=== PATIENT | male | born 1975 | race African-American/Black ===

== ENCOUNTER 2016-12-10 09:33 | Inpatient (IN) | payer MEDICARE, OTHER ==
--- NOTE | 2016-12-10 09:54 | PDOC ---
History of Present Illness - General Chief Complaint: Respiratory Stated Complaint: FEVER Time Seen by Provider: 12/10/16 09:54 Past History - Past Medical History Asthma: Yes - Psycho/Social/Smoking Cessation Hx Suicidal Ideation: No Smoking History: Current every day smoker Number of Cigarettes Smoked Daily: 4 Information on smoking cessation initiated: No Hx Alcohol Use: No Drug/Substance Use Hx: No *Physical Exam - Vital Signs Last Vital Signs Temp Pulse Resp BP Pulse Ox 98.4 F 107 H 18 137/70 100 12/10/16 09:47 12/10/16 09:47 12/10/16 09:47 12/10/16 09:47 12/10/16 09:47 *DC/Admit/Observation/Transfer - Attestations Physician Attestion: 12/10/16 09:54 I, Dr. Blake Peraza, attest that this document has been prepared under my direction and personally reviewed by me in its entirety. I further attest, that it accurately reflects all work, treatment, procedures and medical decision -making performed by me.
[2016-12-10 11:18] LABS: BASOPHIL 0.6 % (0-2.0); EOSINOPHIL 9.7 % (0-4.5); MCHC 32.6 g/dl (32.0-35.9); MEAN CELL VOLUME 79.8 fl (80-96); MEAN PLT VOLUME 7.2 fl (7.5-11.1); NEUTROPHILS 71.9 % (42.8-82.8); PLATELET COUNT 431 K/MM3 (134-434); RDW 13.4 % (11.9-15.9); WHITE BLOOD COUNT 16.9 K/mm3 (4.0-10.0)
--- NOTE | 2016-12-10 11:22 | PDOC ---
History of Present Illness - General Chief Complaint: Respiratory Stated Complaint: FEVER Time Seen by Provider: 12/10/16 09:54 History Source: Patient Exam Limitations: No Limitations - History of Present Illness Initial Comments: 12/10/16 11:16 41-year-old male presents to the ED with complaints of cough and congestion for the past 3 weeks now associated with midsternal chest tightness along with achiness without shortness of breath. Patient denies fever, chills, lower extremity edema, recent travel, recent illness. Patient does state smokes cigarettes daily and has had intermittent palpitations since onset worsened with exertion. Patient denies medical history except for asthma and states has not seen a doctor in a few years. Timing/Duration: reports: other (3 weeks) Severity: reports: mild, moderate Possible Cause: Yes: no prior episodes Modifying Factors: improves with: coughing Associated Symptoms: reports: chest pain/soreness, cough. denies: wheezing Past History - Past Medical History Home Medications: Ambulatory Orders Albuterol Sulfate Inhaler - [Ventolin Hfa Inhaler -] 1 - 2 inh PO Q4HWA PRN Asthma: Yes - Psycho/Social/Smoking Cessation Hx Suicidal Ideation: No Smoking History: Current every day smoker Number of Cigarettes Smoked Daily: 4 Information on smoking cessation initiated: No Hx Alcohol Use: No Drug/Substance Use Hx: No Patient Lives Alone: No Respiratory Specific PMHX - Complaint Specific PMHX Bronchitis: No Pneumonia: No Pulmonary Embolus: No Review of Systems - Review of Systems Able to Perform ROS?: Yes Constitutional: No: Symptoms Reported, Chills, Fever, Weakness HEENTM: No: Symptoms Reported Respiratory: Yes: Cough. No: Shortness of Breath, Productive cough Cardiac (ROS): Yes: Chest Pain ABD/GI: No: Symptoms Reported : No: Symptoms Reported Musculoskeletal: No: Symptoms Reported Integumentary: No: Symptoms Reported Neurological: No: Symptoms reported Endocrine: No: Symptoms Reported Hematologic/Lymphatic: No: Symptoms Reported *Physical Exam - Vital Signs Last Vital Signs Temp Pulse Resp BP Pulse Ox 98.4 F 107 H 18 137/70 100 12/10/16 09:47 12/10/16 09:47 12/10/16 09:47 12/10/16 09:47 12/10/16 09:47 - Physical Exam General Appearance: Yes: Nourished, Appropriately Dressed. No: Apparent Distress HEENT: positive: EOMI, JOE, Pharynx Normal. negative: Pale Conjunctivae Neck: positive: Normal Thyroid, Supple Respiratory/Chest: positive: Lungs Clear, Normal Breath Sounds. negative: Respiratory Distress, Accessory Muscle Use Cardiovascular: positive: Regular Rhythm, Tachycardia. negative: Murmur Vascular Pulses: Dorsalis-Pedis (R): 2+, Doralis-Pedis (L): 2+ Gastrointestinal/Abdominal: positive: Soft. negative: Tenderness Extremity: positive: Normal Capillary Refill. negative: Pedal Edema Integumentary: positive: Normal Color, Warm, Moist Neurologic: positive: Normal Mood/Affect, Motor Strength 5/5 (ambulatory) Heart Score/ECG Review - History History: Slightly suspicious - Electrocardiogram EKG: Normal - Age Age: </= 45 - Risk Factors Risk Factors Heart Score: Yes Smoking History Based on the list above the patient has:: 1-2 risk factors - Troponin Troponin: </= normal limit - Score Heart Score - Total: 1 - ECG Intrepretation Rhythm: Regular Rhythm Comment:: 12/10/16 11:27 sinus tachycardia at 103. left atrial enlargement ED Treatment Course - LABORATORY CBC & Chemistry Diagram: 12/10/16 10:55 12/10/16 10:55 - RADIOLOGY Radiology Studies Ordered: Category Date Time Status CHEST X-RAY PORTABLE* [RAD] Stat Radiology 12/10/16 10:56 Taken Medical Decision Making - Medical Decision Making 12/10/16 11:07 Patient here with complaints of cough and congestion for the past week now associated with midsternal chest pain and palpitations worsened with exertion. Patient exam had no acute findings except for elevated heart rate. Patient was ordered for d-dimer, TSH, cardiac profile, EKG, chest x-ray, CBC, comp, and cardiac monitoring. 12/10/16 13:27 Chest x-ray shows a noncalcified mass projecting over the region of aortic arch likely mediastinal in origin. CT of the chest with IV contrast enhancement as recommended. CAT scan was ordered. Patient made aware and awaiting creatinine level. Patient's heart rate presently at 105. Laboratory Tests 12/10/16 12/10/16 12/10/16 10:55 10:55 10:55 WBC 16.9 H Hgb 11.5 L Hct 35.3 L RDW 13.4 Plt Count 431 MPV 7.2 L Neutrophils % 71.9 Eosinophils % 9.7 H D-Dimer 637 H Sodium 137 Potassium 4.7 Chloride 101 Carbon Dioxide 28 Anion Gap 8 BUN 11 Creatinine 1.0 Random Glucose 101 Calcium 9.0 Total Bilirubin 0.2 AST 28 ALT 50 Troponin I < 0.02 Albumin 2.7 L TSH 1.24 HIV 1&2 Antibody Screen HIV P24 Antigen 12/10/16 10:55 WBC Hgb Hct RDW Plt Count MPV Neutrophils % Eosinophils % D-Dimer Sodium Potassium Chloride Carbon Dioxide Anion Gap BUN Creatinine Random Glucose Calcium Total Bilirubin AST ALT Troponin I Albumin TSH HIV 1&2 Antibody Screen Pending HIV P24 Antigen Pending 12/10/16 15:08 CT of the chest shows a large left superior menisci no necrotic mass lesion measuring 6.5 x 7 cm with mild I atelectatic changes of the adjacent left upper lobe. Case discussed with thoracic surgeon who states patient requires a needle biopsy which can be performed by IR. Patient will be admitted to the hospitalist service. Microblog sent. *DC/Admit/Observation/Transfer Diagnosis at time of Disposition: Mass in chest Chest pain Qualifiers: Chest pain type: unspecified Qualified Code(s): R07.9 - Chest pain, unspecified - Discharge Dispostion Admit: Yes
[2016-12-10 12:19] LABS: GLUCOSE,RANDOM 101 mg/dL (74-106)
[2016-12-10 12:20] LABS: ALBUMIN 2.7 g/dl (3.4-5.0); ALK PHOS 86 U/L (45-117); ANION GAP 8 (8-16); BILIRUBIN,TOTAL 0.2 mg/dL (0.2-1.0); CO2 28 mmol/L (21-32); COCKROFT - GAULT 94.49; SGOT/AST 28 U/L (15-37); SGPT/ALT 50 U/L (12-78); TOT PROT 7.7 g/dl (6.4-8.2)
[2016-12-10 12:21] LABS: THYROID STIMULATING HORMONE 1.24 uIU/ml (0.358-3.74); TROPONIN I < 0.02 ng/ml (0.00-0.05)
[2016-12-10 13:35] LABS: HIV 1 & 2 AB NEGATIVE; HIV 1 AGp24 NEGATIVE
--- NOTE | 2016-12-10 15:50 | EKG ---
Test Reason : Blood Pressure : / mmHG Vent. Rate : 103 BPM Atrial Rate : 103 BPM P-R Int : 140 ms QRS Dur : 076 ms QT Int : 326 ms P-R-T Axes : 080 087 054 degrees QTc Int : 427 ms SINUS TACHYCARDIA POSSIBLE LEFT ATRIAL ENLARGEMENT BORDERLINE ECG NO PREVIOUS ECGS AVAILABLE Confirmed by BINTA KATZ MD ([id number]) on 12/10/2016 3:50:01 PM Referred By: Confirmed By:BINTA KATZ MD
[2016-12-10] MEDS ORDERED: ALBUTEROL SO4 0.083% IH SOL 2.5 MG/3 ML VIAL.NEB. NEB PRN (16:48)
--- NOTE | 2016-12-10 16:48 | HP ---
CHIEF COMPLAINT: Chest pain PCP: Not on staff HISTORY OF PRESENT ILLNESS: Patient is a 41 year old male with a PMHx of Asthma who presented with a nonradiating, sharp, midsternal chest pain that began two weeks ago. 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 This morning patient reports the pain worsened in nature, which prompted this hospital visit. The chest pain is associated with a productive cough with clear sputum, runny nose, fever, chills, night sweats and a 10 pound unintentional weight loss within six months. Patient did not take any medication for the pain and never had any similar episodes in the past. Otherwise, patient denies shortness of breath, nausea, vomiting, abdominal pain, dysuria, hematuria, headaches. ER course was notable for: (1) EKG (2) CT (3) CXR Recent Travel: None PAST MEDICAL HISTORY: Asthma PAST SURGICAL HISTORY: None Social History: Smokin cigarettes a day Alcohol: Denies Drugs: Denies Family History: Father: "shoulder cancer". Mother: DM and HTN Allergies: No Known Drug Allergies Allergy (Verified 12/10/16 16:43) Vital Signs - 24 hr 12/10/16 12/10/16 09:47 14:23 Temperature 98.4 F 98.6 F Pulse Rate 107 H Pulse Rate [ 96 H Left Radial] Respiratory 18 18 Rate Blood Pressure 137/70 Blood Pressure 105/65 [Right Arm] O2 Sat by Pulse 100 98 Oximetry (%) HOME MEDICATIONS: Home Medications Medication Instructions Recorded Albuterol Sulfate Inhaler - 1 - 2 inh PO Q4HWA PRN 12/10/16 [Ventolin Hfa Inhaler -] REVIEW OF SYSTEMS CONSTITUTIONAL: fever, chills, generalized weakness, malaise Absent: diaphoresis, loss of appetite, weight change HEENT: rhinorrhea, nasal congestion Absent: throat pain, throat swelling, difficulty swallowing, mouth swelling, ear pain, eye pain, visual changes CARDIOVASCULAR: palpitations Absent: chest pain, syncope, irregular heart rate, lightheadedness, peripheral edema RESPIRATORY: cough Absent: shortness of breath, dyspnea with exertion, orthopnea, wheezing, stridor , hemoptysis GASTROINTESTINAL: Absent: abdominal pain, abdominal distension, nausea, vomiting, diarrhea, constipation, melena, hematochezia GENITOURINARY: Absent: dysuria, frequency, urgency, hesitancy, hematuria, flank pain, genital pain MUSCULOSKELETAL: Absent: myalgia, arthralgia, joint swelling, back pain, neck pain SKIN: Absent: rash, itching, pallor HEMATOLOGIC/IMMUNOLOGIC: Absent: easy bleeding, easy bruising, lymphadenopathy, frequent infections ENDOCRINE: unexplained weight loss Absent: unexplained weight gain, heat intolerance, cold intolerance NEUROLOGIC: Absent: headache, focal weakness or paresthesias, dizziness, unsteady gait, seizure, mental status changes, bladder or bowel incontinence PSYCHIATRIC: Absent: anxiety, depression, suicidal or homicidal ideation, hallucinations. PHYSICAL EXAMINATION GENERAL: Awake, alert, and fully oriented, in no acute distress. HEAD: Normal with no signs of trauma. EYES: Pupils equal, round and reactive to light, extraocular movements intact, sclera anicteric, conjunctiva clear. EARS, NOSE, THROAT: Oropharynx clear without exudates. Moist mucous membranes. NECK: Normal range of motion, supple without lymphadenopathy, JVD, or masses. LUNGS: Breath sounds equal, clear to auscultation bilaterally. No wheezes, and no crackles. No accessory muscle use. HEART: Tachycardic with normal rhythm, normal S1 and S2 without murmur, rub or gallop. ABDOMEN: Soft, nontender, not distended, normoactive bowel sounds, no guarding, no rebound, no masses. No hepatomegaly or splenomegaly. MUSCULOSKELETAL: Normal range of motion at all joints. UPPER EXTREMITIES: No peripheral edema. LOWER EXTREMITIES: No peripheral edema. NEUROLOGICAL: Normal speech. Normal gait. PSYCHIATRIC: Cooperative. Good eye contact. Appropriate mood and affect. SKIN: Warm, dry, normal turgor, no rashes or lesions noted, normal capillary refill. Laboratory Results - last 24 hr 12/10/16 12/10/16 12/10/16 10:55 10:55 10:55 WBC 16.9 H RBC 4.42 Hgb 11.5 L Hct 35.3 L MCV 79.8 L MCHC 32.6 RDW 13.4 Plt Count 431 MPV 7.2 L Neutrophils % 71.9 Lymphocytes % 9.4 Monocytes % 8.4 Eosinophils % 9.7 H Basophils % 0.6 D-Dimer 637 H Sodium 137 Potassium 4.7 Chloride 101 Carbon Dioxide 28 Anion Gap 8 BUN 11 Creatinine 1.0 Creat Clearance w eGFR > 60 Random Glucose 101 Calcium 9.0 Total Bilirubin 0.2 AST 28 ALT 50 Alkaline Phosphatase 86 Creatine Kinase 99 Troponin I < 0.02 Total Protein 7.7 Albumin 2.7 L TSH 1.24 HIV 1&2 Antibody Screen HIV P24 Antigen 12/10/16 10:55 WBC RBC Hgb Hct MCV MCHC RDW Plt Count MPV Neutrophils % Lymphocytes % Monocytes % Eosinophils % Basophils % D-Dimer Sodium Potassium Chloride Carbon Dioxide Anion Gap BUN Creatinine Creat Clearance w eGFR Random Glucose Calcium Total Bilirubin AST ALT Alkaline Phosphatase Creatine Kinase Troponin I Total Protein Albumin TSH HIV 1&2 Antibody Screen Negative HIV P24 Antigen Negative Images: Chest X-ray (12/10/16): Non calcified mass projecting over region of aortic arch. Chest CT with contrast (12/10/16): Large left superior mediastinal mass lesion measuring 7x6.5cm with hypodense center and thick irregular wall suggestive of a necrotic mass. EKG (12/10/16): Sinus Tachycardia @103 BPM, QTc 427. (-) ST-T changes ASSESSMENT/PLAN: Patient is a 41 year old male with a PMHx of asthma who presented for chest pain , fever, chills, weight loss, and URI symptoms and was found to have a mediastinal mass on CT. Patient admitted for further monitoring and management. Chest Pain likely secondary to mediastinal mass or aortic arch -Possible lymphoma/thymoma? -CT chest revealed necrotic mediastinal mass -Thoracic surgeon contacted and recommended needle biopsy -IR consult placed for mediastinal needle biopsy -If procedure is tomorrow, will place patient NPO -ECHO ordered Leukocytosis -Possibly viral vs. reactive -URI symptoms with low grade fevers -CT and Chest x-ray negative for pneumonia -Will treat symptomatically with Tylenol 650mg PO PRN -Continue to monitor CBC Asthma -Albuterol PRN -O2 as needed F/E/N -On no fluids -Electrolytes wnl -Regular diet. NPO after midnight Prophylaxis -SCD's and EAM for DVT Disposition -Awaiting for needle biopsy. Will need to stay overnight. Visit type - Emergency Visit Emergency Visit: Yes ED Registration Date: 12/10/16 Care time: The patient presented to the Emergency Department on the above date and was hospitalized for further evaluation of their emergent condition. - New Patient This patient is new to me today: Yes Date on this admission: 12/12/16 - Critical Care Critical Care patient: No
[2016-12-10 18:36] VITALS: BMI 21.2
--- NOTE | 2016-12-10 18:49 | PN ---
Teaching Attending Note Name of Resident: Skye Estes ATTENDING PHYSICIAN STATEMENT I saw and evaluated the patient. I reviewed the resident's note and discussed the case with the resident. I agree with the resident's findings and plan as documented. SUBJECTIVE: This is a 41-year-old man with a history of asthma who comes to the ER complaining of productive cough, intermittent chest pain for several weeks. He also notes night sweats and a 10 lb weight loss over about 6 months. OBJECTIVE: Vital Signs Period Temp Pulse Resp BP Sys/Torres Pulse Ox Last 24 Hr 98.4 F-101.8 F 96-107 18-18 100-137/65-70 97-100 HEART: S1 S2, tachycardic LUNGS: Clear ABDOMEN: Soft, non-tender, non-distended, normal BS EXTREMITIES: No edema ASSESSMENT AND PLAN: This is a 41-year-old man with a history of asthma who presented to the ER with productive cough, intermittent chest pain, night sweats, weight loss. 1. SIRS with tachycardia, leukocytosis - No source of infection - Possibly secondary to mediastinal mass 2. Necrotic anterior mediastinal mass with cough, chest pain, night sweats, weight loss - IR evaluation for biopsy - CT surgery evaluation 3. Asthma - Stable - Continue albuterol as needed
[2016-12-10] MEDS: ACETAMINOPHEN 325 MG TABLET (FP) PO PRN (18:55)
[2016-12-11 07:59] LABS: MCH 25.9 pg (25.7-33.7); MCHC 32.4 g/dl (32.0-35.9); MEAN CELL VOLUME 79.9 fl (80-96); MEAN PLT VOLUME 7.4 fl (7.5-11.1); PLATELET COUNT 421 K/MM3 (134-434); RDW 13.4 % (11.9-15.9); WHITE BLOOD COUNT 15.6 K/mm3 (4.0-10.0)
[2016-12-11 08:24] LABS: CALCIUM 9.3 mg/dL (8.5-10.1); COCKROFT - GAULT 93.23
--- NOTE | 2016-12-11 10:23 | PN ---
Physical Exam: SUBJECTIVE: Patient seen and examined by me at bedside. No overnight events noted. Patient offers no complaints OBJECTIVE: Vital Signs Period Temp Pulse Resp BP Sys/Torres Pulse Ox Last 24 Hr 97.7 F-101.8 F 76-101 18-18 97-103/48-66 97-97 GENERAL: Awake, alert, and fully oriented, in no acute distress. NECK: No lymphadenopathy LUNGS: Breath sounds equal, clear to auscultation bilaterally. No wheezes, and no crackles. No accessory muscle use. HEART: RRR, normal S1 and S2 without murmur, rub or gallop. ABDOMEN: Soft, nontender, not distended, normoactive bowel sounds, no guarding, no rebound, no masses. EXTREMITIES: No peripheral edema. Laboratory Results - last 24 hr 12/11/16 12/11/16 12/11/16 06:00 06:00 06:00 WBC 15.6 H RBC 4.31 Hgb 11.1 L Hct 34.4 L MCV 79.9 L MCHC 32.4 RDW 13.4 Plt Count 421 MPV 7.4 L Sodium 137 Potassium 4.9 Chloride 100 Carbon Dioxide 29 Anion Gap 8 BUN 15 D Creatinine 1.0 Random Glucose 85 Calcium 9.3 Blood Type AB POSITIVE Antibody Screen Negative 12/11/16 07:57 WBC RBC Hgb Hct MCV MCHC RDW Plt Count MPV Sodium Potassium Chloride Carbon Dioxide Anion Gap BUN Creatinine Random Glucose Calcium Blood Type AB POSITIVE Antibody Screen Active Medications Generic Name Dose Route Start Last Admin Trade Name Freq PRN Reason Stop Dose Admin Acetaminophen 650 mg 12/10/16 18:36 12/10/16 18:55 Tylenol - PO 650 mg Q6H PRN Administration FEVER OR PAIN Albuterol Sulfate 1 amp 12/10/16 16:48 Ventolin 0.083% Nebulizer Soln - NEB Q6H PRN SHORT OF BREATH/WHEEZING ASSESSMENT/PLAN:
[2016-12-11 10:26] LABS: INR 1.59 (0.82-1.09); PROTHROMBIN TIME (PATIENT) 17.6 SEC (9.98-11.88)
--- NOTE | 2016-12-11 10:41 | CON.PULM ---
Consult Consult Specialty:: PULMONARY Referred by:: MILTON Reason for Consultation:: ANTERIOR MED MASS - History of Present Illness Chief Complaint: COUGH/FEVER/WEIGHT LOSS History of Present Illness: 41 B MALE ACTIVE SMOKER(5 CIGARETTES /DAY) NO ETOH/NO IVDA WAS HIV TESTED 2-3 YEARS AGO TOLD NEGATIVE. PRESENTS WITH COUGH/WHITE SPUTUM/CHEST PAIN WITH COUGH FOR PAST TWO WEEKS. PATIENT HAS NOTED 10 LBS WEIGHT LOSS OVER PAST 3-6 MONTHS. HE HAS A HISTORY OF ASTHMA WHICH IS CONTROLLED BY INHALERS. HAS NOT NOTED TESTICULAR MASS/HEMOPTYSIS /OR HISTORY OF THYROID DISEASE. 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 No: Cancer, COPD, O2 Dependent Gastrointestinal: No: Ascites Hepatobiliary: No: Cirrhosis Renal/: No: Renal Failure Heme/Onc: No: Anemia Infectious Disease: No: AIDS, HIV Psych: No: Addictions Musculoskeletal: No: Bursitis Rheumatology: No: Fibromyalgia Endocrine: No: Diabetes Mellitus - Past Surgical History Past Surgical History: Yes: None - Alcohol/Substance Use Hx Alcohol Use: No History of Substance Use: reports: None - Smoking History Smoking history: Current every day smoker Have you smoked in the past 12 months: Yes Aproximately how many cigarettes per day: 4 - Social History Usual Living Arrangement: Alone Place of : [facility] History of Recent Travel: No Home Medications - Allergies Allergies/Adverse Reactions: Allergies Allergy/AdvReac Type Severity Reaction Status Date / Time No Known Drug Allergies Allergy Verified 12/10/16 16:43 - Home Medications Home Medications: Ambulatory Orders Albuterol Sulfate Inhaler - [Ventolin Hfa Inhaler -] 1 - 2 inh PO Q4HWA PRN Family Disease History - Family Disease History Family History: Unremarkable Review of Systems - Review of Systems Constitutional: reports: Fever, Night Sweats Eyes: reports: No Symptoms HENT: reports: No Symptoms Neck: reports: No Symptoms Cardiovascular: reports: Chest Pain (WITH COUGH) Respiratory: reports: Cough Gastrointestinal: reports: No Symptoms Genitourinary: reports: No Symptoms Breasts: reports: No Symptoms Reported Musculoskeletal: reports: No Symptoms Integumentary: reports: No Symptoms Neurological: reports: No Symptoms Endocrine: reports: No Symptoms Hematology/Lymphatic: reports: No Symptoms Psychiatric: reports: No Symptoms Physical Exam Vital Sings: Vital Signs Temperature 98.5 F 12/11/16 07:04 Pulse Rate 100 H 12/11/16 07:04 Respiratory Rate 18 12/11/16 07:04 Blood Pressure 103/60 12/11/16 07:04 O2 Sat by Pulse Oximetry (%) 97 12/10/16 22:00 Constitutional: Yes: Calm Eyes: Yes: EOM Intact HENT: Yes: Normocephalic Neck: Yes: Trachea Midline. No: Lymphadenopathy, Thyromegaly Cardiovascular: Yes: Regular Rate and Rhythm Respiratory: Yes: CTA Bilaterally Gastrointestinal: Yes: Normal Bowel Sounds, Soft Renal/: Yes: WNL, Other (NO TESTICULAR MASSES PALPATED) Breast(s): Yes: WNL Musculoskeletal: Yes: WNL Extremities: Yes: WNL Edema: No Integumentary: Yes: Tattoos Neurological: Yes: WNL ...Motor Strength: WNL Psychiatric: Yes: WNL Labs: CBC, BMP 12/11/16 06:00 12/11/16 06:00 ALL REVIEWED Imaging - Results Chest X-ray: Image Reviewed Cat Scan: Image Reviewed Problem List - Problems (1) Chest pain Code(s): R07.9 - CHEST PAIN, UNSPECIFIED Qualifiers: Chest pain type: unspecified Qualified Code(s): R07.9 - Chest pain, unspecified (2) Mass of mediastinum Code(s): J98.59 - OTHER DISEASES OF MEDIASTINUM, NOT ELSEWHERE CLASSIFIED (3) Fever Code(s): R50.9 - FEVER, UNSPECIFIED Assessment/Plan 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
--- NOTE | 2016-12-11 11:06 | CONSULT ---
Consult - text type - Consultation Consultation Note: Thoracic Surgery Consultation: 41M active smoker presented with fever and night sweats x 2 weeks, cough, 30lb weight loss and anterior mediastinal mass. Seen by Dr. Saucedo who consulted me. I agree with current plan for core biopsy. Would also send LDH, TFTs, B-hCG , and AFP if not already done. PE shows no palpable lymphadenopathy. Diff dx: lymphoma, thymoma, GCT, lung cancer (small cell over NSCLC). If Core bx non- diagnostic will do [place] (anterior mediastinotomy). Have spent >40 minutes with over 1/2 of the time spent in counseling and coordination of care including discussing with his RN, Dr. Saucedo, Dr. Wiggins, and the patient.
--- NOTE | 2016-12-11 15:24 | PN ---
Physical Exam: SUBJECTIVE: Patient seen and examined by me at bedside. No overnight events noted. Patient did have a temperature >101 yesterday but has not had a temperature since then. He offers no complaints and reports chest pain has subsided. OBJECTIVE: Vital Signs Period Temp Pulse Resp BP Sys/Torres Pulse Ox Last 24 Hr 97.7 F-101.8 F 76-101 18-18 97-109/48-66 97-97 GENERAL: Awake, alert, and fully oriented, in no acute distress. NECK: No lymphadenopathy LUNGS: Breath sounds equal, clear to auscultation bilaterally. No wheezes, and no crackles. No accessory muscle use. HEART: RRR, normal S1 and S2 without murmur, rub or gallop. ABDOMEN: Soft, nontender, not distended, normoactive bowel sounds, no guarding, no rebound, no masses. : No testicular mass EXTREMITIES: No peripheral edema. Laboratory Results - last 24 hr 12/11/16 12/11/16 12/11/16 06:00 06:00 06:00 WBC 15.6 H RBC 4.31 Hgb 11.1 L Hct 34.4 L MCV 79.9 L MCHC 32.4 RDW 13.4 Plt Count 421 MPV 7.4 L INR PTT (Actin FS) Sodium 137 Potassium 4.9 Chloride 100 Carbon Dioxide 29 Anion Gap 8 BUN 15 D Creatinine 1.0 Random Glucose 85 Calcium 9.3 LD Total 173 Blood Type AB POSITIVE Antibody Screen Negative 12/11/16 12/11/16 12/11/16 06:00 07:57 10:00 WBC RBC Hgb Hct MCV MCHC RDW Plt Count MPV INR 1.59 H PTT (Actin FS) 31.0 Sodium Potassium Chloride Carbon Dioxide Anion Gap BUN Creatinine Random Glucose Calcium LD Total Cancelled Blood Type AB POSITIVE Antibody Screen Active Medications Generic Name Dose Route Start Last Admin Trade Name Freq PRN Reason Stop Dose Admin Acetaminophen 650 mg 12/10/16 18:36 12/10/16 18:55 Tylenol - PO 650 mg Q6H PRN Administration FEVER OR PAIN Albuterol Sulfate 1 amp 12/10/16 16:48 Ventolin 0.083% Nebulizer Soln - NEB Q6H PRN SHORT OF BREATH/WHEEZING Images: Chest X-ray (12/10/16): Non calcified mass projecting over region of aortic arch. Chest CT with contrast (12/10/16): Large left superior mediastinal mass lesion measuring 7x6.5cm with hypodense center and thick irregular wall suggestive of a necrotic mass. EKG (12/10/16): Sinus Tachycardia @103 BPM, QTc 427. (-) ST-T changes ASSESSMENT/PLAN: Patient is a 41 year old male with a PMHx of asthma who presented for chest pain , fever, chills, weight loss, and URI symptoms and was found to have a mediastinal mass on CT. Patient admitted for further monitoring and management. Chest Pain likely secondary to mediastinal mass or aortic arch -Possible lymphoma/thymoma/Teratoma/substernal thyroid. AFP, B-HCG, and LDH ordered -Needle Biopsy scheduled for today -ECHO revealed no global hypokinesis Leukocytosis -Possibly viral vs. reactive -URI symptoms with low grade fevers -CT and Chest x-ray negative for pneumonia -Will treat symptomatically with Tylenol 650mg PO PRN -Continue to monitor CBC Asthma -Albuterol PRN -O2 as needed F/E/N -On no fluids -Electrolytes wnl -NPO until needle biopsy Prophylaxis -SCD's and EAM for DVT Disposition -Needle biopsy scheduled today. Visit type - Emergency Visit Emergency Visit: Yes ED Registration Date: 12/10/16 Care time: The patient presented to the Emergency Department on the above date and was hospitalized for further evaluation of their emergent condition. - New Patient This patient is new to me today: No - Critical Care Critical Care patient: No
[2016-12-11] MEDS: ACETAMINOPHEN 325 MG TABLET (FP) PO PRN (16:33)
--- NOTE | 2016-12-11 17:30 | PN ---
Teaching Attending Note Name of Resident: Skye Estes ATTENDING PHYSICIAN STATEMENT I saw and evaluated the patient. I reviewed the resident's note and discussed the case with the resident. I agree with the resident's findings and plan as documented. SUBJECTIVE: Patient continues to have fevers, night sweats. OBJECTIVE: Vital Signs Period Temp Pulse Resp BP Sys/Torres Pulse Ox Last 24 Hr 97.7 F-102.1 F 76-116 15-20 97-119/48-68 97-100 HEART: S1 S2, tachycardic LUNGS: Clear ABDOMEN: Soft, non-tender, non-distended, normal BS EXTREMITIES: No edema ASSESSMENT AND PLAN: This is a 41-year-old man with a history of asthma who presented to the ER with productive cough, intermittent chest pain, night sweats, weight loss. 1. SIRS with tachycardia, leukocytosis - No source of infection - Blood cultures negative so far - Possibly secondary to mediastinal mass 2. Necrotic anterior mediastinal mass with cough, chest pain, night sweats, weight loss - Biopsy by IR today - CT surgery, pulmonary consults appreciated 3. Asthma - Stable - Continue albuterol as needed
[2016-12-12 08:20] LABS: MCH 25.9 pg (25.7-33.7); MCHC 32.4 g/dl (32.0-35.9); MEAN CELL VOLUME 79.9 fl (80-96); PLATELET COUNT 413 K/MM3 (134-434); RDW 13.4 % (11.9-15.9); WHITE BLOOD COUNT 17.4 K/mm3 (4.0-10.0)
--- NOTE | 2016-12-12 09:14 | PN ---
Physical Exam: SUBJECTIVE: Patient seen and examined by me at bedside. No overnight events noted. S/P core biopsy yesterday. Patient reports some soreness in the area of needle insertion but states he does not need pain medication. He denies any shortness of breath, chest pain, palpitations, fever, chills, nausea, vomiting, headaches. OBJECTIVE: Vital Signs Period Temp Pulse Resp BP Sys/Torres Pulse Ox Last 24 Hr 98.2 F-102.1 F 80-116 15-20 92-119/55-68 100-100 GENERAL: Awake, alert, and fully oriented, in no acute distress. NECK: No lymphadenopathy LUNGS: Breath sounds equal, clear to auscultation bilaterally. No wheezes, and no crackles. No accessory muscle use. HEART: RRR, normal S1 and S2 without murmur, rub or gallop. ABDOMEN: Soft, nontender, not distended, normoactive bowel sounds, no guarding, no rebound, no masses. EXTREMITIES: No peripheral edema Laboratory Results - last 24 hr 12/11/16 12/11/16 12/11/16 06:00 06:00 06:00 WBC RBC Hgb Hct MCV MCHC RDW Plt Count MPV INR PTT (Actin FS) LD Total 173 Cancelled Tumor Marker AFP 1.3 12/11/16 12/11/16 12/12/16 10:00 16:00 07:00 WBC 17.4 H RBC 4.25 Hgb 11.0 L Hct 34.0 L MCV 79.9 L MCHC 32.4 RDW 13.4 Plt Count 413 MPV 7.0 L INR 1.59 H PTT (Actin FS) 31.0 LD Total 144 Tumor Marker AFP Active Medications Generic Name Dose Route Start Last Admin Trade Name Freq PRN Reason Stop Dose Admin Acetaminophen 650 mg 12/10/16 18:36 12/11/16 16:33 Tylenol - PO 650 mg Q6H PRN Administration FEVER OR PAIN Albuterol Sulfate 1 amp 12/10/16 16:48 Ventolin 0.083% Nebulizer Soln - NEB Q6H PRN SHORT OF BREATH/WHEEZING Images: Chest X-ray (12/10/16): Non calcified mass projecting over region of aortic arch. Chest CT with contrast (12/10/16): Large left superior mediastinal mass lesion measuring 7x6.5cm with hypodense center and thick irregular wall suggestive of a necrotic mass. EKG (12/10/16): Sinus Tachycardia @103 BPM, QTc 427. (-) ST-T changes ASSESSMENT/PLAN: Patient is a 41 year old male with a PMHx of asthma who presented for chest pain , fever, chills, weight loss, and URI symptoms and was found to have a mediastinal mass on CT. Patient admitted for further monitoring and management. Chest Pain likely secondary to mediastinal mass or aortic arch -Possible lymphoma/thymoma/Teratoma/substernal thyroid. -AFP 1.3 -LDH 144 -B-HCG pending -Core needle biopsy done. If core biopsy non-diagnostic, cardiothoracic surgeon will do anterior mediastinotomy Leukocytosis -Possibly viral vs. reactive -Today WBC >17 -Will treat symptomatically with Tylenol 650mg PO PRN -Continue to monitor CBC Asthma -Albuterol PRN -O2 as needed F/E/N -On no fluids -Electrolytes wnl -NPO until needle biopsy Prophylaxis -SCD's and EAM for DVT Disposition -Awaiting for core biopsy results Visit type - Emergency Visit Emergency Visit: Yes ED Registration Date: 12/10/16 Care time: The patient presented to the Emergency Department on the above date and was hospitalized for further evaluation of their emergent condition. - New Patient This patient is new to me today: No - Critical Care Critical Care patient: No
--- NOTE | 2016-12-12 12:37 | PN ---
Teaching Attending Note Name of Resident: Skye Estes ATTENDING PHYSICIAN STATEMENT I saw and evaluated the patient. I reviewed the resident's note and discussed the case with the resident. I agree with the resident's findings and plan as documented. SUBJECTIVE: No complaints. OBJECTIVE: Vital Signs Period Temp Pulse Resp BP Sys/Torres Pulse Ox Last 24 Hr 98.4 F-102.1 F 80-116 15-20 92-119/55-68 99-100 HEART: S1 S2, tachycardic LUNGS: Clear ABDOMEN: Soft, non-tender, non-distended, normal BS EXTREMITIES: No edema ASSESSMENT AND PLAN: This is a 41-year-old man with a history of asthma who presented to the ER with productive cough, intermittent chest pain, night sweats, weight loss. 1. SIRS with tachycardia, leukocytosis - No source of infection - Blood cultures negative so far - Possibly secondary to mediastinal mass 2. Necrotic anterior mediastinal mass with cough, chest pain, night sweats, weight loss - s/p biopsy by IR 12/11 - follow up pathology - HIV negative 3. Asthma - Stable - Continue albuterol as needed
[2016-12-12] MEDS: ACETAMINOPHEN 325 MG TABLET (FP) PO PRN (16:52)
[2016-12-13] MEDS: ACETAMINOPHEN 325 MG TABLET (FP) PO PRN ×2 (02:47→14:06)
[2016-12-13 08:03] LABS: MCH 26.1 pg (25.7-33.7); MCHC 32.4 g/dl (32.0-35.9); MEAN CELL VOLUME 80.5 fl (80-96); MEAN PLT VOLUME 7.3 fl (7.5-11.1); PLATELET COUNT 396 K/MM3 (134-434); RDW 13.7 % (11.9-15.9)
--- NOTE | 2016-12-13 09:32 | PN ---
Physical Exam: SUBJECTIVE: Patient seen and examined by me at bedside. No overnight events noted. Patient is having intermittent fevers with the last one yesterday evening. Patient given Tylenol and fever subsided. Patient offers no complaints. Otherwise, patient denies fever, chills, nausea, vomiting, headaches OBJECTIVE: Vital Signs Period Temp Pulse Resp BP Sys/Torres Pulse Ox Last 24 Hr 98.4 F-102.9 F 50-99 16-20 105-116/53-60 100 GENERAL: Awake, alert, and fully oriented, in no acute distress. NECK: No lymphadenopathy LUNGS: Breath sounds equal, clear to auscultation bilaterally. No wheezes, and no crackles. No accessory muscle use. HEART: RRR, normal S1 and S2 without murmur, rub or gallop. ABDOMEN: Soft, nontender, not distended, normoactive bowel sounds, no guarding, no rebound, no masses. EXTREMITIES: No peripheral edema Laboratory Results - last 24 hr 12/13/16 06:30 WBC 15.0 H RBC 4.13 Hgb 10.8 L Hct 33.3 L MCV 80.5 MCHC 32.4 RDW 13.7 Plt Count 396 MPV 7.3 L Active Medications Generic Name Dose Route Start Last Admin Trade Name Freq PRN Reason Stop Dose Admin Acetaminophen 650 mg 12/10/16 18:36 12/13/16 02:47 Tylenol - PO 650 mg Q6H PRN Administration FEVER OR PAIN Albuterol Sulfate 1 amp 12/10/16 16:48 Ventolin 0.083% Nebulizer Soln - NEB Q6H PRN SHORT OF BREATH/WHEEZING Images: Chest X-ray (12/10/16): Non calcified mass projecting over region of aortic arch. Chest CT with contrast (12/10/16): Large left superior mediastinal mass lesion measuring 7x6.5cm with hypodense center and thick irregular wall suggestive of a necrotic mass. EKG (12/10/16): Sinus Tachycardia @103 BPM, QTc 427. (-) ST-T changes ASSESSMENT/PLAN: Patient is a 41 year old male with a PMHx of asthma who presented for chest pain , fever, chills, weight loss, and URI symptoms and was found to have a mediastinal mass on CT. Patient admitted for further monitoring and management. Chest Pain likely secondary to mediastinal mass or aortic arch -Possible lymphoma/thymoma/Teratoma/substernal thyroid. -AFP 1.3 -LDH 144 -Core needle biopsy done. If core biopsy non-diagnostic, cardiothoracic surgeon will do anterior mediastinotomy Leukocytosis -Possibly viral vs. reactive -Today WBC 15 -Intermittent fevers, likely tumor fever -Will treat symptomatically with Tylenol 650mg PO PRN -Continue to monitor CBC Asthma -Albuterol PRN -O2 as needed F/E/N -On no fluids -Electrolytes wnl -Regular doet Prophylaxis -SCD's and EAM for DVT Disposition -Awaiting for core biopsy results
--- NOTE | 2016-12-13 11:57 | PN ---
Progress Note (short form) - Note Progress Note: PULMONARY APPEARS STABLE LOW GRADE TEMPS INTERMITTENT ANICTERIC/POOR DENTITION CLEAR LUNG CARMICHAEL S1S2 BS+ NO EDEMA SPOKE WITH PATHOLOGIST MUCH OF THE BX SHOWS NECROTIC TISSUE/THERE IS A SMALL VIABLE AREA AMENABLE TO STAINING CURRENT THINKING IS POSSIBLE LYMPHOMA VS MALIGNANT THYMOMA IF NO DEFINITIVE DX CAN BE MADE THEN MORE AGGRESSIVE PROCEDURE VIA T-SURG WILL BE DONE NO OBJECTION (IF REMAINS CLINICALLY STABLE) TO CONTINUE OBSERVATION AT HOME WITH FOLLOW UP FOR BX RESULTS AND DISCUSSION ON FURTHER TREATMENT/DIAGNOSTIC PLAN Minesh STEINBERG MD Problem List - Problems (1) Chest pain Code(s): R07.9 - CHEST PAIN, UNSPECIFIED Qualifiers: Chest pain type: unspecified Qualified Code(s): R07.9 - Chest pain, unspecified (2) Mass of mediastinum Code(s): J98.59 - OTHER DISEASES OF MEDIASTINUM, NOT ELSEWHERE CLASSIFIED (3) Fever Code(s): R50.9 - FEVER, UNSPECIFIED
[2016-12-13 14:21] VITALS: BP 110/66; PULSE 109; TEMP 102.5
--- NOTE | 2016-12-13 17:55 | PN ---
Teaching Attending Note Name of Resident: Skye Estes ATTENDING PHYSICIAN STATEMENT I saw and evaluated the patient. I reviewed the resident's note and discussed the case with the resident. I agree with the resident's findings and plan as documented. SUBJECTIVE: Patient has no complaints. He continues to have fevers. OBJECTIVE: Vital Signs Period Temp Pulse Resp BP Sys/Torres Pulse Ox Last 24 Hr 98.4 F-102.5 F 83-109 18-20 104-110/53-66 99-100 HEART: S1 S2, tachycardic LUNGS: Clear ABDOMEN: Soft, non-tender, non-distended, normal BS EXTREMITIES: No edema ASSESSMENT AND PLAN: This is a 41-year-old man with a history of asthma who presented to the ER with productive cough, intermittent chest pain, night sweats, weight loss. 1. SIRS with tachycardia, leukocytosis, fever - No source of infection - Blood cultures negative - Secondary to mediastinal mass 2. Necrotic anterior mediastinal mass with cough, chest pain, night sweats, weight loss - s/p biopsy by IR 12/11 - pathology shows necrotic tissue - ? lymphoma, malignant thymoma - Follow-up final pathology - May need CT surgery procedure for definitive diagnosis - HIV negative 3. Asthma - Stable - Continue albuterol as needed 4. Disposition - Ok for discharge home with pulmonary, CT surgery follow up
--- NOTE | 2016-12-13 18:14 | DS ---
Physical Exam: SUBJECTIVE: Patient seen and examined by me at bedside. No overnight events noted. Patient is having intermittent fevers with the last one yesterday evening. Patient given Tylenol and fever subsided. Patient offers no complaints. Otherwise, patient denies fever, chills, nausea, vomiting, headaches. OBJECTIVE: Vital Signs Period Temp Pulse Resp BP Sys/Torres Pulse Ox Last 24 Hr 98.4 F-102.5 F 83-109 18-20 104-110/53-66 99-100 PHYSICAL EXAM GENERAL: Awake, alert, and fully oriented, in no acute distress. NECK: No lymphadenopathy LUNGS: Breath sounds equal, clear to auscultation bilaterally. No wheezes, and no crackles. No accessory muscle use. HEART: RRR, normal S1 and S2 without murmur, rub or gallop. ABDOMEN: Soft, nontender, not distended, normoactive bowel sounds, no guarding, no rebound, no masses. EXTREMITIES: No peripheral edema 'LABS Laboratory Results - last 24 hr 12/13/16 06:30 WBC 15.0 H RBC 4.13 Hgb 10.8 L Hct 33.3 L MCV 80.5 MCHC 32.4 RDW 13.7 Plt Count 396 MPV 7.3 L Images: Chest X-ray (12/10/16): Non calcified mass projecting over region of aortic arch. Chest CT with contrast (12/10/16): Large left superior mediastinal mass lesion measuring 7x6.5cm with hypodense center and thick irregular wall suggestive of a necrotic mass. EKG (12/10/16): Sinus Tachycardia @103 BPM, QTc 427. (-) ST-T changes HOSPITAL COURSE: Patient is a 41 year old male with a PMHx of asthma who presented for chest pain , fever, chills, weight loss, and URI symptoms for the last three weeks and was found to have a mediastinal mass on CT. Patient was admitted for necrotic anterior mediastinal mass rule out thyroid carcinoma/lymphoma/thymic carcinmona / teratoma. Work up was done which included, LDH, TFT's, AFP tumor marker which all returned negative. Patient's chest pain and URI symptoms improved except for intermittent fevers reaching as high as 102.0 F. Patient had a needle biopsy done by cardiothoracic surgeon and final results are still pending. If core biopsy non-diagnostic, cardiothoracic surgeon will likely do anterior mediastinotomy. Patient remained hemodynamically stable and it was decided by the medical team and consults that patient may be discharged home while waiting for the official biopsy report. Patient was advised to check his temperature twice a day and to take Tylenol as needed for fevers. He was also advised to return to the ED if symptoms continue to worsen. Patient was given Dr. Little's office number and information for follow up on Friday (12/17/16 ) and Dr. Little has patients contact information. Patient steady and stable for discharge. Date of Admission:12/10/16 Date of Discharge: 12/13/16 Minutes to complete discharge: 35 Discharge Summary Reason For Visit: MASS IN CHEST Current Active Problems Chest pain (Acute) Fever (Acute) Mass in chest (Acute) Mass of mediastinum (Acute) Condition: Stable - Instructions Diet, Activity, Other Instructions: -You may resume regular diet and exercise. -You will need to follow up with Dr. Little on Friday (12/17/16) for the official biopsy reading and what steps to take from there. -You will likely have more fevers due to the mass in your chest. This is called Tumor fever. Check your temperature twice a day and if you see a high fever, take Tylenol. Do not exceed more than 4000mg a day of tylenol as it may harm your liver. -If you experience any chest pain or shortness of breath, return to the emergency room. -You will need to follow up with your primary care physician within a week. Disposition: HOME - Home Medications Comprehensive Discharge Medication List: Ambulatory Orders Albuterol Sulfate Inhaler - [Ventolin HFA Inhaler -] 1 - 2 inh PO Q4HWA PRN This patient is new to me today: Yes Date on this admission: 12/13/16 Emergency Visit: No Critical Care patient: No - Discharge Referral Referred to [facility] Med P.C.: No
--- NOTE | 2016-12-17 16:06 | PATH ---
Surgical Pathology Report Patient Name: ELVIRA GHOTRA Med. Rec. #: [id number] /Age/Gender: 1975 (Age: 41) / M Account: [id number] Location: [facility] MED/SURG Taken: 12/11/2016 Received: 12/12/2016 Reported: 12/17/2016 Physicians: Henny Viveros M.D. Daniel Nicastri, M.D. 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 Comment: Immunohistochemical stains performed and interpreted at [facility] show the following: the tumor cells are positive for Ae/Ae3 keratin and CK7 immunostains, focally weakly positive for TTF1; the tumor cells are negative for CK20, p63, and synaptophysin immunostains; CD45 highlights background lymphocytes and appears negative in tumor cells. Additional immunohistochemical stains performed at [place], [place] ([id number]) and interpreted at [facility] show the tumor cells are positive for GIAN and Napsin A immunostains and are negative for PLAP, CD117, p40, CD56, and PAX8 immunostains; CD5 immunostain highlights predominantly lymphocytes also a few tumor cells show weak reactivity. Overall, the findings are of poorly differentiated carcinoma with squamous morphology and extensive necrosis. While the immunoprofile of the tumor is not specific for a particular primary site; together with the morphologic findings it is suggestive of thymic origin. Metastatic lung carcinoma would show similar immunophenotype with Napsin A and CK7 reactivity; however, no primary lung lesion is visualized by reports, no adenocarcinoma morphology is readily observed. Poorly differentiated thyroid carcinoma may exhibit squamoid morphology, but is less likely with Napsin A reactivity and in the absence of a thyroid lesion. Therefore, thymic origin of this carcinoma is favored. Clinical and imaging correlations are suggested. Additional immunohistochemical stains for WT1 and calretinin are pending; results will be reported in an addendum. The case was discussed with Dr. Little on 12/17/16. Electronically Signed Ace Covarrubias M.D. Addendum Reported: 12/18/2016 Addendum Diagnosis Additional immunohistochemical stains for WT1 and Calretinin performed at [place], [place] ([id number]) and interpreted as [facility] show the following: The tumor cells are negative for WT1 immunostain and show focal weak reactivity with Calretinin. These results are supportive of the interpretation rendered above. Ace Covarrubias M.D. Addendum Reported: 12/20/2016 Addendum Diagnosis Flow Cytometry performed and interpreted on the concurrent specimen [place], [place] ([id number]) was limited due to paucicellularity and low a number of cells comprised of scattered immunophenotypically normal T-cells; essentially no B-cells were detected. Ace Covarrubias M.D. Gross Description Received in formalin labeled "mediastinal biopsy" is a 0.6 x 0.4 x 0.1 cm aggregate of greenwood soft tissue fragments. The formalin is filtered and the specimen is entirely submitted in one cassette. 12/12/201612/12/2016
== END 2016-12-13 18:56 | disposition home or self-care (01) | DRG 136 ==
LOC: JER 09:33 → JERBED 15:27 → J8W 17:55
PROVIDERS: ADMIT Internal Medicine; ATTEND Internal Medicine
PROC: 0WBC3ZX Excision of Mediastinum, Percutaneous Approach, Diagnostic (ICD-10-PCS; principal; 2016-12-11)
DX: C38.1 Malignant neoplasm of anterior mediastinum (principal); R22.2 Localized swelling, mass and lump, trunk; R00.0 Tachycardia, unspecified; D72.829 Elevated white blood cell count, unspecified; J45.909 Unspecified asthma, uncomplicated; R50.9 Fever, unspecified; R07.9 Chest pain, unspecified; F17.210 Nicotine dependence, cigarettes, uncomplicated; R65.10 Systemic inflammatory response syndrome (SIRS) of non-infectious origin without acute organ dysfunction; R63.4 Abnormal weight loss; Z68.21 Body mass index [BMI] 21.0-21.9, adult
CPT/HCPCS: 32405; 36415; 71010-TC; 71260-TC; 76098-TC; 77012-TC; 80048; 80053; 82105; 82550; 83615; 84443; 84484; 84702; 85025; 85027; 85379; 85610; 85730; 86850; 86900; 86901; 87040; 87389; 87899; 88305-TC; 88341-TC; 93005; 93010; 93306-TC; 99282-25

== ENCOUNTER 2017-01-08 21:28 | Emergency (ER) | payer SELFPAY ==
[2017-01-08 21:36] VITALS: BP 128/76; PULSE 89; TEMP 97.6; BMI 24.2
--- NOTE | 2017-01-08 21:59 | PDOC ---
History of Present Illness - General History Source: Patient Exam Limitations: No Limitations <Jimmy Saez - Last Filed: 01/08/17 22:02> - General History Source: Patient Exam Limitations: No Limitations - History of Present Illness Initial Comments: 01/08/17 22:09 The patient is a 41 year old male, with a significant past medical history of asthma and Lung CA s/p left lung removal, who presents to the emergency department with lower back pain and shortness of breath onset today. He reports that 1 week ago he had lung surgery that removed the left lung due to a tumor at [facility]. He was recently discharged yesterday. He notes that he was exerting himself today, prompting the back pain and shortness of breath. He decided to come to the ED for evaluation but upon arriving to the ED all of his symptoms have resolved. He states that his physicians are waiting to put him on chemotherapy due to the recent surgery and his next appointment is in 2 weeks. The patient denies chest pain, headache and dizziness. Denies fever, chills, nausea, vomit, diarrhea and constipation. Denies dysuria, frequency, urgency and hematuria. Allergies: None Past surgical history: None reported Social history: No alcohol, tobacco or drug use reported <Edward Paredes - Last Filed: 01/08/17 22:10> - General Chief Complaint: Pain Stated Complaint: PAIN Time Seen by Provider: 01/08/17 21:34 Past History - Past Medical History Asthma: Yes - Psycho/Social/Smoking Cessation Hx Suicidal Ideation: No Smoking History: Unknown if ever smoked Have you smoked in the past 12 months: No Number of Cigarettes Smoked Daily: 4 Information on smoking cessation initiated: No 'Breaking Loose' booklet given: 12/10/16 Hx Alcohol Use: No Drug/Substance Use Hx: No <Jimmy aSez - Last Filed: 01/08/17 22:02> <Edward Paredes - Last Filed: 01/08/17 22:10> - Past Medical History Allergies/Adverse Reactions: Allergies Allergy/AdvReac Type Severity Reaction Status Date / Time No Known Drug Allergies Allergy Verified 01/08/17 21:32 Home Medications: Ambulatory Orders Albuterol Sulfate Inhaler - [Ventolin HFA Inhaler -] 1 - 2 inh PO Q4HWA PRN Review of Systems - Review of Systems Able to Perform ROS?: Yes Comments:: 01/08/17 22:09 GENERAL/CONSTITUTIONAL: No fever or chills. No weakness. HEAD, EYES, EARS, NOSE AND THROAT: No change in vision. No ear pain or discharge. No sore throat. CARDIOVASCULAR: (+) Shortness of breath. No chest pain RESPIRATORY: No cough, wheezing, or hemoptysis. GASTROINTESTINAL: No nausea, vomiting, diarrhea or constipation. GENITOURINARY: No dysuria, frequency, or change in urination. MUSCULOSKELETAL: (+) Back pain. No joint or muscle swelling or pain. No neck pain. SKIN: No rash NEUROLOGIC: No headache, vertigo, loss of consciousness, or change in strength/ sensation. ENDOCRINE: No increased thirst. No abnormal weight change HEMATOLOGIC/LYMPHATIC: No anemia, easy bleeding, or history of blood clots. ALLERGIC/IMMUNOLOGIC: No hives or skin allergy. <Edward Paredes - Last Filed: 01/08/17 22:10> *Physical Exam - Vital Signs Last Vital Signs Temp Pulse Resp BP Pulse Ox 97.6 F 89 18 128/76 96 01/08/17 21:34 01/08/17 21:34 01/08/17 21:34 01/08/17 21:34 01/08/17 21:34 <Jimmy Saez - Last Filed: 01/08/17 22:02> - Vital Signs Last Vital Signs Temp Pulse Resp BP Pulse Ox 97.6 F 89 18 128/76 96 01/08/17 21:34 01/08/17 21:34 01/08/17 21:34 01/08/17 21:34 01/08/17 21:34 - Physical Exam Comments: 01/08/17 22:10 GENERAL: Awake, alert, and fully oriented, in no acute distress HEAD: No signs of trauma, normocephalic, atraumatic EYES: PERRLA, EOMI, sclera anicteric, conjunctiva clear ENT: Auricles normal inspection, hearing grossly normal, nares patent, oropharynx clear without exudates. Moist mucosa NECK: Normal ROM, supple, no lymphadenopathy, JVD, or masses LUNGS: (+) Decreased breath sounds on the left than the right. No distress, speaks full sentences, clear to auscultation bilaterally HEART: Regular rate and rhythm, normal S1 and S2, no murmurs, rubs or gallops, peripheral pulses normal and equal bilaterally. ABDOMEN: Soft, nontender, normoactive bowel sounds. No guarding, no rebound. No masses EXTREMITIES: Normal inspection, Normal range of motion, no edema. No clubbing or cyanosis. NEUROLOGICAL: Cranial nerves II through XII grossly intact. Normal speech, normal gait, no focal sensorimotor deficits SKIN: (+) Anterior chest surgical scar, clean, dry and intact. Warm, Dry, normal turgor, no rashes or lesions noted. <Edward Paredes - Last Filed: 01/08/17 22:10> ED Treatment Course - RADIOLOGY Radiology Studies Ordered: Category Date Time Status CHEST X-RAY PORTABLE* [RAD] Stat Radiology 01/08/17 21:46 Stop Req <Jimmy Saez - Last Filed: 01/08/17 22:02> Medical Decision Making - Medical Decision Making 01/08/17 22:00 A portion of this note was documented by scribe services under my direction. I have reviewed the details of the note, within reason, and agree with the documentation with the following case summary and management plan written by me. Patient treated in the ED. Nursing notes are reviewed and incorporated into the medical decision-making. Vital signs reviewed. Peripheral IV access obtained by the nurse, laboratory studies are drawn and sent, reviewed and interpreted by myself. Vital Signs Temp Pulse Resp BP Pulse Ox 97.6 F 89 18 128/76 96 01/08/17 21:34 01/08/17 21:34 01/08/17 21:34 01/08/17 21:34 01/08/17 21:34 41-year-old male with left-sided lung resection at [facility] 8 days ago for left-sided lung tumor presented with short duration of her right lower back pain. Patient reported that his surgery was on comp dictated otherwise was feeling well. Was discharged yesterday and no distress. Patient reported that the pain occurred when he was walking around outside. Patient's pain caused to feel short of breath, however his back pain resolved. The patient now reports feeling well. This resolved when he arrived to the ED. Patient is no complaints now. He feels comfortable. Patient denies history of kidney stones or dysuria hematuria. He is not having any chest pain short of breath. Patient is requesting call. I feel that this result to go home. There is no evidence of infection at this time. We'll discharge home and return precautions given. I discussed the physical exam findings, ancillary test results and final diagnoses with the patient. I answered all of the patient's questions. The patient was satisfied with the care received and felt comfortable with the discharge plan and treatment plan. The patient will call their primary care physician within 24 hours to arrange follow-up and will return to the Emergency Department with any new, persistant or worsening symptoms. <Jimmy Saez - Last Filed: 01/08/17 22:02> *DC/Admit/Observation/Transfer - Discharge Dispostion Admit: No <Jimmy Saez - Last Filed: 01/08/17 22:02> - Attestations Scribe Attestion: 01/08/17 22:10 Documentation prepared by Edward Paredes, acting as medical insurance claims specialist for Jimmy Saez MD <Edward Paredes - Last Filed: 01/08/17 22:10> Diagnosis at time of Disposition: Back pain Qualifiers: Back pain location: back pain in unspecified location Chronicity: acute Back pain laterality: unspecified Qualified Code(s): M54.9 - Dorsalgia, unspecified - Discharge Dispostion Disposition: HOME Condition at time of disposition: Good - Patient Instructions Printed Discharge Instructions: DI for Low Back Pain Additional Instructions: If you develop reoccurrence of back pain or shortness of breath, please return to the ER. Otherwise, follow up with your doctor in 2 days.
== END 2017-01-08 22:03 | disposition home or self-care (01) ==
LOC: JER 21:28
DX: M54.89 Other dorsalgia (principal); C34.92 Malignant neoplasm of unspecified part of left bronchus or lung; Z90.2 Acquired absence of lung [part of]; Z98.890 Other specified postprocedural states
CPT/HCPCS: 99282-25